=== PATIENT | male | born 1985 | race Caucasian/White ===

== ENCOUNTER 2017-09-07 22:53 | Inpatient (IN) ==
[2017-09-07] MEDS ORDERED: MOM Conc 10 ML UD.LIQ PO PRN (23:34)
[2017-09-07] MEDS ORDERED: traZODone 50 MG TABLET PO PRN (23:34)
[2017-09-07] MEDS ORDERED: Ibuprofen 400 MG TABLET PO PRN (23:34)
[2017-09-07] MEDS ORDERED: Haloperidol Lactate 5 MG/ML VIAL IM PRN (23:34)
[2017-09-07] MEDS ORDERED: *HR* LORazepam 1 MG TABLET PO PRN (23:34)
[2017-09-07] MEDS ORDERED: Mag Hydrox/Al Hydrox/Simeth 30 ML UDC PO PRN (23:34)
[2017-09-07] MEDS ORDERED: *HR* LORazepam 2 MG/ML VIAL IM PRN (23:34)
[2017-09-07] MEDS ORDERED: hydrOXYzine pamoate 25 MG CAPSULE PO PRN (23:34)
--- NOTE | 2017-09-08 10:04 | Psychiatry History & Physical ---
Date of Encounter: 09/08/17 Time of Encounter: 09:57 History of Present Illness Patient Stated Chief Complaint: suicidal ideation Medicare Admission Attestation: For traditional Medicare patients the provided hospital inpatient services are reasonable and necessary and in the case of services not specified as inpatient -only under 42 CFR 419.22 (n), that they are appropriately provided as inpatient services in accordance 42 CFR 412.3. For Critical Access Hospital the patient may reasonably be expected to be discharged or transferred to a hospital within 96 hours after admission to the Critical Access Hospital. Admitted From: Home Plans for Post Hospital Care: Home History of Present Illness: Mr. Joshua is a 31 year old male who was transferred to [place] from [facility]. According to client he went to the ER for help with depression. Claims he wanted to be linked with SP. "That's all." Very angry that he was admitted. Hostile to this rfp writer. Claims he won't cooperate with treatment. Walked out of the room shortly after coming in and slammed the door so hard particles rained down from the ceiling. According to staff he is now back in his room tearing it apart. Security has been called. Unable to assess suicidality as client stormed out without answering any questions. Past Med Surg Social Fam HX - Past Psychiatric History Psychiatric history: Reports: depression Family psychiatric history: Unknown Family History of Suicide: Unknown Medications & Allergies 3 Allergy/AdvReac Type Severity Reaction Status Date / Time Sulfa (Sulfonamide Allergy See Verified 09/08/17 08:31 Antibiotics) Comments Review of Systems Constitutional: Denies: fever, chills, weakness, weight change Eyes: Denies: eye pain, vision change Ears, Nose, Throat: Denies: ear pain, throat pain, dental pain, hearing loss, congestion Cardiovascular: Denies: chest pain, palpitations, dyspnea on exertion Respiratory: Denies: cough, dyspnea, wheezes Gastrointestinal: Denies: abdominal pain, nausea, vomiting, diarrhea, constipation Genitourinary male: Denies: urgency, dysuria, frequency, genital lesions Genitourinary female: Denies: urgency, dysuria, frequency, abnormal menses, dyspareunia Musculoskeletal: Denies: joint swelling, joint pain Integumentary: Denies: rash, lesions, pruritus Neurological: Denies: headache, weakness, numbness, memory loss Endocrine: Denies: fatigue, heat or cold intolerance Hematologic/Lymphatic: Denies: easy bruising, lymphadenopathy Allergic/Immunologic: Denies: urticaria, itchy eyes Mental Status Exam Patient orientation: Yes Person, Yes Time, Yes Place Level of alertness: Alert Patient appearance: Unkempt, Disheveled Behavior: agitated, hostile, uncooperative Psychomotor activity: Normal Eye contact: Minimal Contact Mood description: Angry, Irritable Affect description: congruent with mood Speech pattern: Coherent, Includes Profanity Speech volume: Loud Thought process: Linear Thought content: Yes Suicidal ideation, No Overt delusions Perceptual disturbances: No Auditory hallucinations, No Visual hallucinations Attention span: Capable of Focused Attention Memory description: Grossly Intact Patient reliability: Not Reliable Historian Intelligence estimate: Average Judgment: Poor Insight: Minimal Exam - HEENT Head exam IM: Present: atraumatic Eye exam IM: Present: EOMI ENT exam IM: Present: mucous membranes moist - Neurological Neurological exam IM: Present: alert - Respiratory Respiratory exam IM: Present: CTAB - GI/Abdominal GI/Abdominal exam IM: Present: normal bowel sounds - Extremities Extremities exam IM: Present: full ROM - Skin Skin exam IM: Present: normal color Assessment and Plan (1) Major depress dis, severe Current visit: Yes Status: Acute Plan: Admit inpatient for safety and stabilization, Close observation, Suicide Precautions per unit protocol, Encourage participation in unit milieu, Group Therapy, Monitor sleep, Monitor appetite Risks, benefits, side effects, alternatives discussed w/pt: Yes Patient agreeable to treatment: Yes Plans for Post Hospital Care: Home Estimated Length of Stay (Days): 4
--- NOTE | 2017-09-08 11:45 | Discharge Summary ---
Date of Encounter: 09/08/17 Time of Encounter: 11:34 Diagnosis - Discharge Diagnosis (1) Major depress dis, severe Status: Acute Medications - Discharge Medications 3 Allergy/AdvReac Type Severity Reaction Status Date / Time Sulfa (Sulfonamide Allergy See Verified 09/08/17 08:31 Antibiotics) Comments Provider Date of admission: 09/07/17 23:18 Primary care physician: PCP NONE Discharging clinician: Saida Esposito Assessment and Plan - Patient/Caregiver Discharge Instructions Activity: resume usual activities as tolerated Diet: regular diet - Follow up Plan Follow up with: NONE,PCP [Primary Care Provider] - Functional capacity at discharge: independent ambulation Overall status at discharge: Stable Disposition: Home, Self-Care Hospital Course Hospital course: Mr. Joshua is a 31 year old male who was admitted yesterday secondary to suicidal ideation. Client initially refused to speak with this check writer salesperson and stormed out of the room slamming the door. A short while later he returned and asked to talk. He was very tearful and very apologetic. He talked at length about his life history and all of the stressors he is currently facing. Client reports he went to [facility] in order to be linked with [facility] because he understands he is depressed with anger issues. Wants counseling. SP came out to the ER and opened his case and he has a walk-in appointment Sunday. Client reports he has been on multiple meds in the past with little success. Opposed to trying meds at this time as he wants to start with counseling. Had counseling in the past and reports he responded well to it. Counseling stopped because his probation ended. Client asked to pay mariscal to continue but was instructed he had to change providers and he never followed up. Denies he is suicidal. Admits he became angry with the ER staff because they wanted him to give a urine sample for a drug screen. Claims he said things he didn't mean which is why he ended up here. Admits he drinks alcohol excessively but denies any drug use for over two years. Has a job interview on Sunday. Does not want to miss it. This check writer salesperson spoke with his girlfriend who verified everything he said. She is comfortable picking him up and having him stay with her for tonight. She does not feel he is an immediate risk to himself but thinks he is a risk to himself if he doesn't get help soon. She was not fearful for her own safety or the safety of anyone but the client's own. Discussed whether continued hospitalization would be beneficial or harmful. Ultimately decided client would be better off leaving today to follow up with job interview and mental health appointment on Sunday. No current criteria to pursue forced meds and client does not want medication management at this time. - Time Spent with Patient Total time spent providing and/or coordinating discharge services: Quality - Multiple Antipsychotics Patient discharged on 2 or more antipsychotic medications: No Procedures - Procedures Procedures: Crisis Stabilization, Supportive Therapy, Group Therapy Mental Status Exam - Mental Status Exam Patient orientation: Yes Person, Yes Time, Yes Place Level of alertness: Alert Patient appearance: Unkempt Behavior: calm, cooperative Psychomotor activity: Normal Eye contact: Maintains Eye Contact Mood description: Depressed Affect description: congruent with mood Speech pattern: Normal rate, Normal rhythm, Normal tone Speech Volume: Normal Thought process: Linear, Goal Oriented Thought Content: No Suicidal ideation, No Homicidal ideation, No Overt delusions Perceptual Disturbances: No Auditory hallucinations, No Visual hallucinations Judgment: Limited Insight: Partial
== END 2017-09-08 13:50 | disposition home or self-care (01) | DRG 885 ==
LOC: 1ANU 23:18
PROVIDERS: ADMIT Psychiatry & Neurology Psychiatry; ATTEND Psychiatry & Neurology Psychiatry